=== PATIENT | male | born 1985 | race African-American/Black ===

== ENCOUNTER 2018-11-24 15:48 | Inpatient (IN) | payer SELFPAY ==
[~2018-11-24] VITALS: Ht 182.9 cm; Wt 80.0 kg
[2018-11-24 15:53] VITALS: Ht 182.9 cm; Wt 80.0 kg
[2018-11-24] MEDS ORDERED: SODIUM CHLORIDE 0.9% 1L BAG IV* STA (16:11)
[2018-11-24] MEDS ORDERED: CEFEPIME 2GM/50 ML (PMX) 50 ML IVPB STA (16:11)
[2018-11-24] MEDS ORDERED: ACETAMINOPHEN 325 MG TAB PO STA (16:14)
--- NOTE | 2018-11-24 16:14 | ERD ---
ER Documentation Chief Complaint Chief Complaint FEVER TODAY , CHILLS HPI 33-year-old male with no significant prior medical history who is visiting from [facility], arrived 6 days ago presents to the ED complaining of 2-day history of worsening generalized weakness with fevers and shaking chills. Denies chest pain, palpitations, shortness of breath, cough or hemoptysis. No abdominal pain, nausea, vomiting, diarrhea or constipation. No dysuria, polyuria, hematuria or flank pain. No URI symptoms, rhinorrhea, nasal congestion or odynophagia. No scrotal swelling, pain or penile discharge. No skin rash. Mild frontal headache but no neck or back pain. No ill contacts. ROS All systems reviewed and are negative except as per history of present illness. Medications Home Meds Active Scripts Amoxicillin/Potassium Clav (Amox-Clav 875-125 mg Tablet) 875-125 mg Tab, 875 MG PO BID for 5 Days, #10 TAB Prov:NAHOMI IRVIN MD 11/26/18 Allergies Allergies: Coded Allergies: No Known Allergy (Unverified , 11/24/18) PMhx/Soc History of Surgery: No Anesthesia Reaction: No Hx Neurological Disorder: No Hx Respiratory Disorders: No Hx Cardiac Disorders: No Hx Psychiatric Problems: No Hx Miscellaneous Medical Probl: No Hx Alcohol Use: No Hx Substance Use: No Hx Tobacco Use: No FmHx No stroke or cancer. Physical Exam Vitals Temperature: 101.7. Pulse: 98. Respirations: 18. Blood pressure: 139/88. O2 saturation 99%. Physical Exam Const: Moderate distress, Rigors. Head: Atraumatic Eyes: Pupils equal reactive to light, extraocular movements are intact. Normal Conjunctiva. Anicteric. ENT: Normal External Ears, Nose and Mouth. Pharynx is clear without erythema or exudate. No tenderness to percussion of the sinuses. Neck: Full range of motion. No meningismus. No lymphadenopathy or masses. Resp: Breath sounds are equal and clear to auscultation bilaterally Cardio: Regular rate and rhythm, no murmurs Abd: Soft, non tender, non distended. No rebound or guarding. No masses or abnormal pulsations. Negative Maldonado sign or McBurney's point tenderness. Normal bowel sounds Skin: No petechiae or rashes Back: No midline tenderness to palpation or percussion. No CVA tenderness. Ext: No cyanosis, or edema. No joint swelling or tenderness. Neur: Awake and alert. Cranial nerves II through XII are grossly intact. Motor and sensory equal bilaterally. No focal deficit observed. Psych: Appropriate mood and Affect Result Diagram: 11/26/18 0554 11/26/18 0554 Results 24 hrs Laboratory Tests Test 11/24/18 16:19 11/24/18 16:20 11/24/18 16:22 11/24/18 17:02 Hepatitis B REACTIVE Surface Antigen Hepatitis B Core REACTIVE Total Antibody Hepatitis B Core IgM Ab Confirm Hepatitis C NEGATIVE Antibody White Blood Count 5.2 10^3/ul Red Blood Count 6.30 10^6/ul Hemoglobin 14.5 g/dl Hematocrit 46.5 % Mean Corpuscular 73.8 fl Volume Mean Corpuscular 23.0 pg Hemoglobin Mean Corpuscular 31.2 g/dl Hemoglobin Concen t Red Cell 14.6 % Distribution Width Platelet Count 138 10^3/UL Mean Platelet 10.4 fl Volume Immature 0.200 % Granulocytes % Neutrophils % 75.7 % Lymphocytes % 16.7 % Monocytes % 6.6 % Eosinophils % 0.4 % Basophils % 0.4 % Nucleated Red 0.0 /100WBC Blood Cells % Immature 0.010 10^3/ul Granulocytes # Neutrophils # 3.9 10^3/ul Lymphocytes # 0.9 10^3/ul Monocytes # 0.3 10^3/ul Eosinophils # 0.0 10^3/ul Basophils # 0.0 10^3/ul Nucleated Red 0.0 10^3/ul Blood Cells # Prothrombin Time 13.4 Sec Prothrombin Time 1.0 Ratio INR International 1.01 Normalized Ratio Activated 29.8 Sec Partial Thrombopl ast Time Sodium Level 143 mmol/L Potassium Level 3.9 mmol/L Chloride Level 102 mmol/L Carbon Dioxide 30 mmol/L Level Anion Gap 11 Blood Urea 9 mg/dl Nitrogen Creatinine 1.01 mg/dl Est Glomerular > 60 mL/min Filtrat Rate mL/min Glucose Level 94 mg/dl POC Venous 1.3 mmol/L Lactate Calcium Level 9.3 mg/dl Total Bilirubin 1.9 mg/dl Direct Bilirubin 0.00 mg/dl Indirect 1.9 mg/dl Bilirubin Aspartate Amino 83 IU/L Transf (AST/SGOT) Alanine 128 IU/L Aminotransferase (ALT/SGPT) Alkaline 94 IU/L Phosphatase Troponin I 0.015 ng/ml Total Protein 7.9 g/dl Albumin 4.2 g/dl Globulin 3.70 g/dl Albumin/Globulin 1.13 Ratio Urine Color YELLOW Urine Clarity CLEAR Urine pH 8.0 Urine Specific 1.014 [place] Urine Ketones NEGATIVE mg/dL Urine Nitrite NEGATIVE mg/dL Urine Bilirubin NEGATIVE mg/dL Urine 2+ mg/dL Urobilinogen Urine Leukocyte NEGATIVE Leslie/ul Esterase Urine Microscopic 3 /HPF RBC Urine Microscopic 0 /HPF WBC Urine Hemoglobin 1+ mg/dL Urine Glucose NEGATIVE mg/dL Urine Total NEGATIVE mg/dl Protein Urine Opiates Negative Screen Urine Negative Barbiturates Urine Negative Amphetamines Screen Urine Negative Benzodiazepines Screen Urine Cocaine Negative Screen Urine Negative Cannabinoids C-Reactive 3.4 mg/dl Protein Test 11/24/18 17:26 11/24/18 18:31 Hepatitis A IgM REACTIVE Antibody Lactic Acid Level 1.6 mmol/L Current Medications Medications Dose Sig/Eddie Start Time Status Last (Trade) Ordered Route PRN Stop Time Admin Dose Reason Admin Sodium 2,400 ml BOLUS OVER 2 11/24/18 DC 11/24/18 Chloride HOURS STAT 16:11 16:22 (NS) IV* 11/24/18 16:14 Cefepime HCl 50 ml @ ONCE STAT 11/24/18 DC 11/24/18 100 mls/hr IVPB 16:11 16:24 11/24/18 16:40 Vancomycin 250 ml @ ONCE ONCE 11/24/18 DC 11/24/18 HCl 125 mls/hr IVPB 16:30 16:44 11/24/18 18:29 650 mg ONCE STAT 11/24/18 DC 11/24/18 Acetaminophen PO 16:14 16:24 (Tylenol 11/24/18 16:16 Tab) Ketorolac 15 mg ONCE STAT 11/24/18 DC 11/24/18 Tromethamine IV 18:34 18:41 (Toradol) 11/24/18 18:35 Procedures/MDM DOCUMENTS REVIEWED: ED nurse, no prior records. EKG: Time: 16:28. Sinus tachycardia. Ventricular rate 107. Normal UT and QRS. No acute ST segment elevation or depression. No ectopy. My Interpretation IMAGING: Chest AP portable. Cardiac silhouette is normal. The costophrenic angles are clear. No effusions or infiltrates. No abnormalities of the bony thorax. My interpretation. PROCEDURE: US right upper quadrant CLINICAL INDICATION: Hyperbilirubinemia and transaminitis TECHNIQUE: Multiple real-time images were acquired of the patient's right upper abdomen utilizing a high resolution transducer. COMPARISON: None available FINDINGS: Liver: Normal in size, contour and echogenicity. Normal directional blood flow is seen within the patent main portal vein. The maximum dimension estimated at 14.7 cm . Gallbladder: Partially contracted but unremarkable for gallstones or sludge. No sonographic Maldonado's sign is reported. Common bile duct: Normal; 2.8 mm. There is no evidence for choledocholithiasis. Right Kidney: Normal; maximum length measured at approximately 11.3 cm. Pancreas: Visualized portions are normal. The tail is partially obscured by bowel gas. RPTAT:HJJR IMPRESSION: Slightly contracted gallbladder, otherwise unremarkable right upper quadrant ultrasound without findings to explain the patient's provided history. Physician Darrion Date Time Electronically viewed and signed by Physician Darrion on 11/24/2018 18:34 JR/ REEXAMINATION/REEVALUATION: Time: 17:10. Better. No chills. Denies headache or neck pain. Time: 18:35. Temperature up to 103.2 F. Treated with ketorolac 50 mg IV. Benefits including diagnosis of meningitis and encephalitis as well as risks including bleeding, infection, CSF leak and post lumbar puncture headache were explained and understood by the patient with the family at the bedside. At this time is refusing lumbar puncture as he is worried about the complications. OBSERVATION NOTE: At 16:15 the patient was entered into observation status to establish the need for admission. During this time the patient was treated for fever of unknown origin. Additionally, extensive evaluation including, CBC, chemistry, urinalysis, EKG, troponin, chest x-ray, liver function test and ultrasound of the right upper quadrant were preformed with results interpreted as above. Vitals signs were monitored and multiple, frequent reexaminations were performed. At 19:15 the patient was reexamined. Continues to be febrile. Refuses lumbar puncture. Based on these findings the patient was discharged from observation as it was determined that the patient met criteria for admission. TOTAL OBSERVATION TIME: 3 Hours. MEDICAL DECISION MAKIN-year-old male with no significant prior medical history who is visiting from [facility], arrived 6 days ago presents to the ED complaining of fevers and chills. CBC reveals mild thrombocytopenia but no leukocytosis or anemia. Chemistry unremarkable for renal insufficiency or electrolyte abnormalities. Liver function test significant for mild hyperbilirubinemia and transaminitis. Hepatitis B surface antigen is positive. Chest x-ray negative for infiltrate or pneumonia. Thick smear for malaria is pending. Patient recently returned from [place] [employer] to evaluate for malaria is pending. E bolus is unlikely. Dengue and chikungunya considered but no joint pains or rash. Patient refused lumbar puncture to evaluate for meningitis or encephalitis. I considered CT scan of the abdomen pelvis to evaluate for occult intra-abdominal process but abdominal exam is completely benign without tenderness, rebound, guarding or signs of peritonitis and advanced imaging at this time is not indicated. Criteria for systemic inflammatory response syndrome include fever and tachycardia. Within 60 minutes of arrival, Normal saline 30 cc/kg fluid bolus was given and broad-spectrum antibiotics after cultures administered although no specific, acute infectious source was identified. No hhypotension and POC lactate not consistent with severe sepsis or septic shock. Patient's infectious symptoms have not stabilized and the patient is at risk of rapid decompensation. The patient will be admitted for infectious disease consultation, careful hydration, antibiotic therapy, and infectious source control. PATIENT CARE TRANSITIONED: Time: 19:15, Dr. Irvin. Counseled patient and family regarding diagnosis, diagnostic results and plan for admission. Critical Care Time: 35 minutes Treatments/Evaluations: Close monitoring and treatment of unstable vital signs, cardiorespiratory, and neurologic status, while maintaining tight balance of fluid, respiratory, and cardiac interventions. This includes the administration of emergency fluid management while maintaining close respiratory support as well as the provision of immediate and broad-spectrum antibiotic therapy, while performing a simultaneous assessment for possible sources in order to direct targeted therapy. This time includes discussing the case with the patient and the patient's family. This time also includes the consideration for invasive and chemical support to prevent cardiopulmonary collapse. This time does not include all procedures stated elsewhere in this record. This time also includes reviewing old records, labs and radiological studies. This time includes examining and re-examining the patient. Additionally, this time also includes arranging care with admitting and consulting physicians. Departure Diagnosis: Primary Impression: Fever of unknown origin Additional Impressions: SIRS (systemic inflammatory response syndrome) Hepatitis B Viral hepatitis chronicity: unspecified Hepatic coma status: without hepatic coma Hepatitis delta agent presence: without delta-agent Qualified Codes: B19.10 - Unspecified viral hepatitis B without hepatic coma Condition: Serious SHANTAL WARNER MD Nov 24, 2018 16:14
[2018-11-24] MEDS ORDERED: VANCOMYCIN 1 GM (PMX) 250 ML IVPB ONE (16:30)
[2018-11-24] MEDS ORDERED: KETOROLAC 15 MG INJ IV STA (18:34)
[2018-11-24] MEDS ORDERED: ACETAMINOPHEN 325 MG TAB PO PRN (19:30)
[2018-11-24] MEDS ORDERED: ONDANSETRON 4 MG INJ IV PRN ×2 (19:30→20:00)
[2018-11-24] MEDS ORDERED: BISACODYL (EC) 5 MG TAB PO PRN (20:00)
[2018-11-24] MEDS ORDERED: DOCUSATE SODIUM 100 MG CAP PO PRN (20:00)
[2018-11-24] MEDS ORDERED: IBUPROFEN 600 MG TAB PO PRN (20:00)
[2018-11-24] MEDS ORDERED: NACL 0.9% 3 ML SYG IV SCH (20:00)
[2018-11-24] MEDS ORDERED: HYDROCODONE/APAP (5/325) TAB PO PRN (20:00)
[2018-11-24] MEDS ORDERED: SOD CHLORIDE 0.9% 500 ML IV ONE (20:30)
[2018-11-24] MEDS ORDERED: VANCOMYCIN IV PER PHARMACY XX SCH (20:30)
[2018-11-24] MEDS ORDERED: LEVALBUTEROL (NEB) 1.25 MG/0.5 ML AMP HHN PRN (20:30)
[2018-11-24 21:40] VITALS: BP 102/59; RESP 18
[2018-11-24] MEDS: SOD CHLORIDE 0.9% 1,000 ML IV SCH (23:01)
[2018-11-24] MEDS: VANCOMYCIN 750 MG (PMX) 250 ML IVPB SCH (23:01)
[2018-11-24] MEDS: ACETAMINOPHEN 325 MG TAB PO PRN (23:03)
--- NOTE | 2018-11-24 23:16 | HP ---
Date/Time of Note Date/Time of Note DATE: 11/24/18 TIME: 23:15 Assessment/Plan VTE Prophylaxis SCD applied (from Nsg): Yes Pharmacological prophylaxis: NA/contraindicated Pharm contraindication: low risk/ambulating Lines/Catheters IV Catheter Type (from Nrsg): Peripheral IV Assessment/Plan Hospital Course This is a 33-year-old male being admitted to the [facility] floor for: #1 Sirs syndrome: Patient presented with fevers and tachycardia. He recently traveled from [facility]. He does have transaminitis or hyperbilirubinemia. His CBC panel at the current time does not appear to be consistent with hemolysis. Nonetheless we will check for malaria which is already been ordered. We will al so check HIV, hepatitis panel, West Nile virus, HSV. He refused a LP in the emergency department however he does not report any meningeal signs at the current time. We will put the patient on broad-spectrum antibiotics of vancomycin and cefepime. With the patient on isolation precautions. We will check ESR, CRP will consult infectious disease Drvirgil. #2 thrombocytopenia: No signs of bleeding. Right upper quadrant does not show any acute liver abnormality's. He does have transaminitis and hyperbilirubinemia. Will check hepatitis panel. We will need to monitor platelets closely. #3 transaminitis with hyperbilirubinemia: In the setting of fever, hepatitis as have to be in the differential. Will check hepatitis panel. Right upper quadrant ultrasound does not show any acute ab normalities. Patient does have thrombocytopenia. Will monitor closely. GI consultation. #4 Microcytosis: We will check iron panel, no signs of bleeding. #5 DVT GI prophylaxis: SCDs, no GI prophylaxis indicated Further treatment strategy will be implemented as per the clinical course. Result Diagram: 11/24/18 1620 11/24/18 1620 Results 24hrs Laboratory Tests Test 11/24/18 16:19 11/24/18 16:20 11/24/18 16:22 11/24/18 17:02 Hepatitis B Surface POSITIVE H Antigen Hepatitis B Core REACTIVE H Total Antibody Hepatitis C Antibody NEGATIVE White Blood Count 5.2 Red Blood Count 6.30 H Hemoglobin 14.5 Hematocrit 46.5 Mean Corpuscular 73.8 L Volume Mean Corpuscular 23.0 L Hemoglobin Mean Corpuscular 31.2 L Hemoglobin Concent Red Cell 14.6 H Distribution Width Platelet Count 138 L Mean Platelet Volume 10.4 Immature 0.200 Granulocytes % Neutrophils % 75.7 Lymphocytes % 16.7 Monocytes % 6.6 Eosinophils % 0.4 Basophils % 0.4 Nucleated Red Blood 0.0 Cells % Immature 0.010 Granulocytes # Neutrophils # 3.9 Lymphocytes # 0.9 Monocytes # 0.3 Eosinophils # 0.0 Basophils # 0.0 Nucleated Red Blood 0.0 Cells # Prothrombin Time 13.4 Prothrombin Time 1.0 Ratio INR International 1.01 Normalized Ratio Activated 29.8 Partial Thromboplast Time Sodium Level 143 Potassium Level 3.9 Chloride Level 102 Carbon Dioxide Level 30 Anion Gap 11 Blood Urea Nitrogen 9 Creatinine 1.01 Est Glomerular > 60 Filtrat Rate mL/min Glucose Level 94 POC Venous Lactate 1.3 Calcium Level 9.3 Total Bilirubin 1.9 H Direct Bilirubin 0.00 Indirect Bilirubin 1.9 H Aspartate Amino 83 H Transf (AST/SGOT) Alanine 128 H Aminotransferase (AL T/SGPT) Alkaline Phosphatase 94 Troponin I 0.015 Total Protein 7.9 Albumin 4.2 Globulin 3.70 H Albumin/Globulin 1.13 Ratio Urine Color YELLOW Urine Clarity CLEAR Urine pH 8.0 Urine Specific 1.014 [place] Urine Ketones NEGATIVE Urine Nitrite NEGATIVE Urine Bilirubin NEGATIVE Urine Urobilinogen 2+ H Urine Leukocyte NEGATIVE Esterase Urine Microscopic 3 RBC Urine Microscopic 0 WBC Urine Hemoglobin 1+ H Urine Glucose NEGATIVE Urine Total Protein NEGATIVE Urine Opiates Screen Negative Urine Barbiturates Negative Urine Amphetamines Negative Screen Urine Negative Benzodiazepines Screen Urine Cocaine Screen Negative Urine Cannabinoids Negative C-Reactive Protein 3.4 H Test 11/24/18 18:31 11/24/18 21:12 11/24/18 21:13 Lactic Acid Level 1.6 1.2 Erythrocyte 6 Sedimentation Rate Absolute 0.055 Reticulocyte Count Percent Reticulocyte 1.0 Count HPI/ROS Admit Date/Time Admit Date/Time Nov 24, 2018 at 19:29 Hx of Present Illness Chief complaint: Fevers, chills This is a 33-year-old male who presents with no past medical history to the emergency department with fevers and chills. Patient reports that he came from [facility] approximately 6 days ago. He was doing fine for the first few days and then approximately 2 to 3 days ago started expressing fevers and chills. He did have a headache. He denies any neck pain or nausea or vomiting. Denies any cough or chest pain or shortness of breath. Denies any burning when he urinates. He reports that he came to the [place] on official visit for work. He denies any history of blood transfusions. He is and is only sexually active with his . He denies any IV drug use. He does state that he received hepatitis vaccination in 2016. He denies any previous history of hepatitis. He does report though that he has gone through similar episodes right now with fevers and chills and they resolve in a few days. Allergies: NKDA Medications: None ROS Const: As per HPI Eyes : No pain discharge or redness or change in visual acuity ENT: No pain, sore throat, congestion, congestion, dysphagia or discharge Respiratory: No shortness of breath, cough, sputum, wheezing, or pleuritic pain Cardiovascular: No chest pain, palpitation, PND, or edema GI : no change in appetite, abdominal pain, nausea, vomiting, diarrhea, constipation, or change in the color his stool Genitourinary: No dysuria, hematuria, flank pain , discharge or CVA tenderness Musculoskeletal: No joint pain, back pain, neck pain, restricted range of motion in neck or joints Skin: No rash, bruising or hives Neuro: As per HPI Endocrine: No polyuria, polydipsia, temperature intolerance Psych: No hallucination, depression, anxiety or suicidal ideation PMH/Family/Social Past Medical History Medical History: no pertinent history Medications Current Medications IV Flush (NS 3 ml) 3 ml PER PROTOCOL IV ; Start 11/24/18 at 20:00 Ondansetron HCl (Zofran Inj) 4 mg Q6H PRN IV NAUSEA/VOMITING; Start 11/24/18 at 20:00 Acetaminophen (Tylenol Tab) 650 mg Q6H PRN PO .PAIN 1-3 OR TEMP Last administered on 11/24/18at 23:03; Admin Dose 650 MG; Start 11/24/18 at 20:00 Ibuprofen (Motrin) 600 mg Q6H PRN PO .PAIN 1-3; Start 11/24/18 at 20:00 Acetaminophen/ Hydrocodone Bitart (Watson (5/325)) 1 tab Q6H PRN PO .MOD PAIN 4- 6; Start 11/24/18 at 20:00 Docusate Sodium (Colace) 100 mg Q12H PRN PO .CONSTIPATION; Start 11/24/18 at 20:00 Bisacodyl (Dulcolax) 5 mg DAILY PRN PO .CONSTIPATION; Start 11/24/18 at 20:00 Vancomycin HCl (Vanco Iv Per Pharmacy) VANCOMYCIN PER PHARMACY PER PROTOCOL XX ; Start 11/24/18 at 20:30 Piperacillin Sod/ Tazobactam Sod 100 ml @ 200 mls/hr Q6 IVPB ; Start 11/25/18 at 00:00 Sodium Chloride 1,000 ml @ 80 mls/hr [id number] IV Last administered on 11/24/18at 23:01; Admin Dose 80 MLS/HR; Start 11/24/18 at 22:30; Stop 11/25/18 at 22:29 Levalbuterol (Xopenex Neb) 1.25 mg Q4H RESP THERAPY PRN HHN SHORTNESS OF B REATH; Start 11/24/18 at 20:30 Vancomycin/Sodium Chloride 250 ml @ 125 mls/hr Q8H IVPB Last administered on 11/24/18at 23:01; Admin Dose 125 MLS/HR; Start 11/24/18 at 23:00 Miscellaneous Information (*Rx Drug Level Order Reminder*) VANCOMYCIN TROUGH LE... 2200 ONCE XX ; Start 11/25/18 at 22:00; Stop 11/25/18 at 22:01 Coded Allergies: No Known Allergy (Unverified , 11/24/18) Past Surgical History Past Surgical Hx: no surgical history Family History Significant Family History: no pertinent family hx Social History Alcohol Use: none Smoking Status: Never smoker Drug Use: none Exam/Review of Systems Vital Signs Vitals Vital Signs Date Temp Pulse Resp B/P (MAP) Pulse Ox O2 O2 Flow FiO2 Time Delivery Rate 11/24/18 99.1 83 20 100/65 98 Room Air 21:22 (77) Exam Exam General: Patient currently lying in bed he does not appear to be in any acute distress HEENT: Atraumatic, normocephalic. The pupils are equal, round and reactive. Extraocular motor are intact Neck: Supple with full range of motion. No rigidity or meningismus Chest: Nontender Lungs: Clear to auscultation bilaterally no crackles rales or wheezing Heart: Normal S1-S2, Regular rhythm and rate. No murmur, S3, or S4 Abdomen: Soft , nontender, nondistended , bowel sounds are present. No guarding no rebound tenderness , no overt organomegaly appreciated on exam. Nontender right upper quadrant nontender left upper quadrant. No costovertebral temporal angle mass Extremities: Normal to inspection, no edema no cyanosis Neurologic: Normal mental status, speech normal, cranial nerves II through XII are intact, motor and sensory are intact, no focal weakness Additional Comments PROCEDURE: US right upper quadrant CLINICAL INDICATION: Hyperbilirubinemia and transaminitis TECHNIQUE: Multiple real-time images were acquired of the patient's right upper abdomen utilizing a high resolution transducer. COMPARISON: None available FINDINGS: Liver: Normal in size, contour and echogenicity. Normal directional blood flow is seen within the patent main portal vein. The maximum dimension estimated at 14.7 cm . Gallbladder: Partially contracted but unremarkable for gallstones or sludge. No sonographic Maldonado's sign is reported. Common bile duct: Normal; 2.8 mm. There is no evidence for choledocholithiasis. Right Kidney: Normal; maximum length measured at approximately 11.3 cm. Pancreas: Visualized portions are normal. The tail is partially obscured by bowel gas. RPTAT:HJJR IMPRESSION: Slightly contracted gallbladder, otherwise unremarkable right upper quadrant ultrasound without findings to explain the patient's provided history. Physician Darrion Date Time Electronically viewed and signed by Physician Darrion on 11/24/2018 18:34 JR/ CC: SHANTAL WARNER MD [id number] PROCEDURE: XR Chest. CLINICAL INDICATION: Chest pain. Possible sepsis TECHNIQUE: Portable AP semi erect view of the chest was obtained. COMPARISON: None. FINDINGS: The cardiomediastinal silhouette is within normal limits. The lungs are clear. There is no evidence for pleural effusion, pneumothorax or pulmonary vascular congestion. The osseous structures are intact with no evidence for acute abnormality. RPTAT:HJJR IMPRESSION: No evidence for acute intrathoracic pathology. Sam Villegas, Physician Date Time Electronically viewed and signed by Sam Villegas, Physician on 11/24/2018 17:28 JR/ CC: SHANTAL WARNER MD [id number] BOBY MCCAULEY Nov 24, 2018 23:16
[2018-11-25] MEDS ORDERED: PIPER-TAZO 3.375 GM IV (PMX) 100 ML IVPB SCH
[2018-11-25] MEDS: CEFEPIME 2GM/50 ML (PMX) 50 ML IVPB SCH ×4 (01:18→22:00)
[2018-11-25 01:36] VITALS: BP 102/65; PULSE 75; RESP 18
[2018-11-25] MEDS: VANCOMYCIN 750 MG (PMX) 250 ML IVPB SCH (07:05)
[2018-11-25 08:48] VITALS: BP 119/66; PULSE 95; RESP 20
--- NOTE | 2018-11-25 09:05 | CONS ---
Assessment/Plan Assessment/Plan Hospital Course (Demo Recall) 1)probable viral syndrome doubt he has meningitis no evidence to suggest ebola at this time and it is only present in the [place] [facility], not in [facility] malaria is present all year round in [facility], including [facility], to repeat thick smear for malaria, pt does not recall any mosquito bites dengue is possible but he does not exhibit the typical symptoms for it (severe myalgias, retro-orbital pain, petecchiae) and it is too early for Ab to appear for it, continue to monitor for symptoms continue with vanco/cefepime at present but if fever is improved and procalcitonin and cx are all neg will likely d/c antibiotics soon check procalcitonin influenza rapid screen was neg, to check viral respiratory panel pt has no diarrhea so unlikely he has a GI cause for his fever CXR was neg and pt has no respiratory symptoms typhoid fever is possible but no diarrhea and blood cx are NGTD no hx of recent dental work and no IVDA use, so doubt endocarditis, to follow blood cx 2) increase in LFT's although he received the hep B vaccine in [facility] last year he has no antibodies to Hep B surface and his surface antigen is positive in light of how low his increase in LFT's are he likely has chronic hepatitis and will need followup with repeat testing in a few months to see if he can clear it on his own also his increase in LFT's could be also related to a viral syndrome RUQ u/s was unremarkable 3)leukopenia and thrombocytopenia this is c/w an viral process work-up as above doubt he has sepsis to explain it Consultation Date/Type/Reason Admit Date/Time Nov 24, 2018 at 19:29 Date of Consultation: Nov 25, 2018 Type of Consult ID Date/Time of Note DATE: 11/25/18 TIME: 08:45 Hx of Present Illness pt has traveled back and forth from [place], [place] and [facility] He was here in [place] about the month ago and then went back to [facility] on 10/29/18 and returned on 11/17/18 He did not start to feel sick until 2 days ago when he developed F, chills (rigors). He also had a BAUTISTA but mostly when he had the fevers. No change in vision, cough, sore throat, coryza. He states he sat next to someone on the plane who appeared sick. No rashes, muscle aches, joint pains no N, V, D, rashes no dysuria he is feeling better today c/w yesterday and the BAUTISTA is frontal and mild his last pain med was 12 hours ago pt states he got Hep B vaccine about a year ago and had been tested prior to the vaccine and did not have Hep B Pt is and no hx of IVDA Past Medical History Medical History: no pertinent history Home Meds No Active Prescriptions or Reported Meds Medications Current Medications IV Flush (NS 3 ml) 3 ml PER PROTOCOL IV ; Start 11/24/18 at 20:00 Ondansetron HCl (Zofran Inj) 4 mg Q6H PRN IV NAUSEA/VOMITING; Start 11/24/18 at 20:00 Acetaminophen (Tylenol Tab) 650 mg Q6H PRN PO .PAIN 1-3 OR TEMP Last administered on 11/24/18at 23:03; Admin Dose 650 MG; Start 11/24/18 at 20:00 Ibuprofen (Motrin) 600 mg Q6H PRN PO .PAIN 1-3; Start 11/24/18 at 20:00 Acetaminophen/ Hydrocodone Bitart ([place] (5/325)) 1 tab Q6H PRN PO .MOD PAIN 4- 6; Start 11/24/18 at 20:00 Docusate Sodium (Colace) 100 mg Q12H PRN PO .CONSTIPATION; Start 11/24/18 at 20:00 Bisacodyl (Dulcolax) 5 mg DAILY PRN PO .CONSTIPATION; Start 11/24/18 at 20:00 Vancomycin HCl (Vanco Iv Per Pharmacy) VANCOMYCIN PER PHARMACY PER PROTOCOL XX ; Start 11/24/18 at 20:30 Sodium Chloride 1,000 ml @ 80 mls/hr [id number] IV Last administered on 11/24/18at 23:01; Admin Dose 80 MLS/HR; Start 11/24/18 at 22:30; Stop 11/25/18 at 22:29 Levalbuterol (Xopenex Neb) 1.25 mg Q4H RESP THERAPY PRN HHN SHORTNESS OF BREATH; Start 11/24/18 at 20:30 Vancomycin/Sodium Chloride 250 ml @ 125 mls/hr Q8H IVPB Last administered on 11/25/18at 07:05; Admin Dose 125 MLS/HR; Start 11/24/18 at 23:00 Miscellaneous Information (*Rx Drug Level Order Reminder*) VANCOMYCIN TROUGH LE... 2200 ONCE XX ; Start 11/25/18 at 22:00; Stop 11/25/18 at 22:01 Cefepime HCl 50 ml @ 100 mls/hr Q8 IVPB Last administered on 11/25/18at 06:25; Admin Dose 100 MLS/HR; Start 11/25/18 at 00:00 Allergies: Coded Allergies: No Known Allergy (Unverified , 11/24/18) Past Surgical History Past Surgical Hx: no surgical history Social History Alcohol Use: none Smoking Status: Never smoker Drug Use: none Exam/Review of Systems Exam Vitals Vital Signs Date Temp Pulse Resp B/P (MAP) Pulse Ox O2 O2 Flow FiO2 Time Delivery Rate 11/25/18 98.4 75 18 102/65 98 01:36 (77) 11/24/18 Room Air 21:40 Intake and Output 11/24/18 11/24/18 11/25/18 1515:00 23:00 07:00 IntakeIntake Total 50 ml 580 ml OutputOutput Total 1200 ml BalanceBalance -1150 ml 580 ml Constitutional: alert, oriented Eyes: nl sclera ENMT: mucosa pink and moist Neck: supple Respiratory: clear to auscultation Cardiovascular: regular rate and rhythm Gastrointestinal: soft, non-tender, other (no masses felt) Musculoskeletal: nl extremities to inspection Neurological: other (moves all extremities) Results Result Diagram: 11/25/18 0459 11/25/18 0459 Results 24hrs Laboratory Tests Test 11/24/18 16:19 11/24/18 16:20 11/24/18 16:22 11/24/18 17:02 Hepatitis B Surface POSITIVE H Antigen Hepatitis B Core REACTIVE H Total Antibody Hepatitis C Antibody NEGATIVE White Blood Count 5.2 Red Blood Count 6.30 H Hemoglobin 14.5 Hematocrit 46.5 Mean Corpuscular 73.8 L Volume Mean Corpuscular 23.0 L Hemoglobin Mean Corpuscular 31.2 L Hemoglobin Concent Red Cell 14.6 H Distribution Width Platelet Count 138 L Mean Platelet Volume 10.4 Immature 0.200 Granulocytes % Neutrophils % 75.7 Lymphocytes % 16.7 Monocytes % 6.6 Eosinophils % 0.4 Basophils % 0.4 Nucleated Red Blood 0.0 Cells % Immature 0.010 Granulocytes # Neutrophils # 3.9 Lymphocytes # 0.9 Monocytes # 0.3 Eosinophils # 0.0 Basophils # 0.0 Nucleated Red Blood 0.0 Cells # Prothrombin Time 13.4 Prothrombin Time 1.0 Ratio INR International 1.01 Normalized Ratio Activated 29.8 Partial Thromboplast Time Sodium Level 143 Potassium Level 3.9 Chloride Level 102 Carbon Dioxide Level 30 Anion Gap 11 Blood Urea Nitrogen 9 Creatinine 1.01 Est Glomerular > 60 Filtrat Rate mL/min Glucose Level 94 POC Venous Lactate 1.3 Calcium Level 9.3 Total Bilirubin 1.9 H Direct Bilirubin 0.00 Indirect Bilirubin 1.9 H Aspartate Amino 83 H Transf (AST/SGOT) Alanine 128 H Aminotransferase (AL T/SGPT) Alkaline Phosphatase 94 Troponin I 0.015 Total Protein 7.9 Albumin 4.2 Globulin 3.70 H Albumin/Globulin 1.13 Ratio Urine Color YELLOW Urine Clarity CLEAR Urine pH 8.0 Urine Specific 1.014 [place] Urine Ketones NEGATIVE Urine Nitrite NEGATIVE Urine Bilirubin NEGATIVE Urine Urobilinogen 2+ H Urine Leukocyte NEGATIVE Esterase Urine Microscopic 3 RBC Urine Microscopic 0 WBC Urine Hemoglobin 1+ H Urine Glucose NEGATIVE Urine Total Protein NEGATIVE Urine Opiates Screen Negative Urine Barbiturates Negative Urine Amphetamines Negative Screen Urine Negative Benzodiazepines Screen Urine Cocaine Screen Negative Urine Cannabinoids Negative C-Reactive Protein 3.4 H Test 11/24/18 18:31 11/24/18 21:12 11/24/18 21:13 11/25/18 04:59 Lactic Acid Level 1.6 1.2 Erythrocyte 6 Sedimentation Rate Absolute 0.055 Reticulocyte Count Percent Reticulocyte 1.0 Count White Blood Count 2.6 #L Red Blood Count 5.49 Hemoglobin 12.7 L Hematocrit 41.2 L Mean Corpuscular 75.0 L Volume Mean Corpuscular 23.1 L Hemoglobin Mean Corpuscular 30.8 L Hemoglobin Concent Red Cell 14.4 Distribution Width Platelet Count 111 L Mean Platelet Volume 11.5 H Immature 0.400 Granulocytes % Neutrophils % Lymphocytes % Monocytes % Eosinophils % Basophils % Nucleated Red Blood 0.0 Cells % Immature 0.010 Granulocytes # Neutrophils # Lymphocytes # Monocytes # Eosinophils # Basophils # Nucleated Red Blood Cells # Sodium Level 146 H Potassium Level 3.9 Chloride Level 111 H Carbon Dioxide Level 25 Anion Gap 10 Blood Urea Nitrogen 7 Creatinine 0.82 Est Glomerular > 60 Filtrat Rate mL/min Glucose Level 107 Hemoglobin A1c 5.4 Calcium Level 8.6 Magnesium Level 1.7 Iron Level 47 Total Iron Binding 273 Capacity Percent Iron 17 L Saturation Ferritin 126.0 Total Bilirubin 2.2 H Direct Bilirubin 0.00 Indirect Bilirubin 2.2 H Aspartate Amino 56 H Transf (AST/SGOT) Alanine 104 H Aminotransferase (AL T/SGPT) Alkaline Phosphatase 81 Lactate 535 Dehydrogenase C-Reactive Protein 4.8 H Total Protein 6.3 # Albumin 3.2 #L Globulin 3.10 Albumin/Globulin 1.03 Ratio Thyroid Stimulating 3.460 Hormone (TSH) Hepatitis B Surface POSITIVE H Antigen Hepatitis B Surface NEGATIVE Antibody Hepatitis B Core REACTIVE H Total Antibody Medications Medication Current Medications IV Flush (NS 3 ml) 3 ml PER PROTOCOL IV ; Start 11/24/18 at 20:00 Ondansetron HCl (Zofran Inj) 4 mg Q6H PRN IV NAUSEA/VOMITING; Start 11/24/18 at 20:00 Acetaminophen (Tylenol Tab) 650 mg Q6H PRN PO .PAIN 1-3 OR TEMP Last administered on 11/24/18at 23:03; Admin Dose 650 MG; Start 11/24/18 at 20:00 Ibuprofen (Motrin) 600 mg Q6H PRN PO .PAIN 1-3; Start 11/24/18 at 20:00 Acetaminophen/ Hydrocodone Bitart ([place] (5/325)) 1 tab Q6H PRN PO .MOD PAIN 4- 6; Start 11/24/18 at 20:00 Docusate Sodium (Colace) 100 mg Q12H PRN PO .CONSTIPATION; Start 11/24/18 at 20:00 Bisacodyl (Dulcolax) 5 mg DAILY PRN PO .CONSTIPATION; Start 11/24/18 at 20:00 Vancomycin HCl (Vanco Iv Per Pharmacy) VANCOMYCIN PER PHARMACY PER PROTOCOL XX ; Start 11/24/18 at 20:30 Sodium Chloride 1,000 ml @ 80 mls/hr [id number] IV Last administered on 11/24/18at 23:01; Admin Dose 80 MLS/HR; Start 11/24/18 at 22:30; Stop 11/25/18 at 22:29 Levalbuterol (Xopenex Neb) 1.25 mg Q4H RESP THERAPY PRN HHN SHORTNESS OF BREATH; Start 11/24/18 at 20:30 Vancomycin/Sodium Chloride 250 ml @ 125 mls/hr Q8H IVPB Last administered on 11/25/18at 07:05; Admin Dose 125 MLS/HR; Start 11/24/18 at 23:00 Miscellaneous Information (*Rx Drug Level Order Reminder*) VANCOMYCIN TROUGH LE... 2200 ONCE XX ; Start 11/25/18 at 22:00; Stop 11/25/18 at 22:01 Cefepime HCl 50 ml @ 100 mls/hr Q8 IVPB Last administered on 11/25/18at 06:25; Admin Dose 100 MLS/HR; Start 11/25/18 at 00:00 ROBY RICHARDSON MD Nov 25, 2018 08:57
[2018-11-25] MEDS: SOD CHLORIDE 0.9% 1,000 ML IV SCH ×2 (11:00→19:35)
[2018-11-25] MEDS: ACETAMINOPHEN 325 MG TAB PO PRN (12:20)
[2018-11-25 13:28] VITALS: BP 110/66; PULSE 96; RESP 18
[2018-11-25] MEDS: VANCOMYCIN 1 GM 250 ML IVPB SCH ×2 (15:42→23:03)
--- NOTE | 2018-11-25 15:50 | PN ---
Date/Time of Note Date/Time of Note DATE: 11/25/18 TIME: 15:49 Assessment/Plan VTE Prophylaxis Risk score (from Nsg)>0 risk: 0 SCD applied (from Nsg): Yes Pharmacological prophylaxis: heparin Lines/Catheters IV Catheter Type (from Nrsg): Peripheral IV Assessment/Plan Hospital Course 33 yo male with HBV who arrived from [facility] recently with febrile illness of unclear etiology - Continue antibiotics as per Dr Oliveros - Seems to be improving - Await infectious labs studies HBV: - No evidence of cirrhosis - I do not believe this is playing a role in acute illness - Will need to have this monitored as an outpaitne Result Diagram: 11/25/18 0459 11/25/18 0459 Results 24hrs Laboratory Tests Test 11/24/18 16:19 11/24/18 16:20 11/24/18 16:22 11/24/18 17:02 Hepatitis B Surface POSITIVE H Antigen Hepatitis B Core REACTIVE H Total Antibody Hepatitis C Antibody NEGATIVE White Blood Count 5.2 Red Blood Count 6.30 H Hemoglobin 14.5 Hematocrit 46.5 Mean Corpuscular 73.8 L Volume Mean Corpuscular 23.0 L Hemoglobin Mean Corpuscular 31.2 L Hemoglobin Concent Red Cell 14.6 H Distribution Width Platelet Count 138 L Mean Platelet Volume 10.4 Immature 0.200 Granulocytes % Neutrophils % 75.7 Lymphocytes % 16.7 Monocytes % 6.6 Eosinophils % 0.4 Basophils % 0.4 Nucleated Red Blood 0.0 Cells % Immature 0.010 Granulocytes # Neutrophils # 3.9 Lymphocytes # 0.9 Monocytes # 0.3 Eosinophils # 0.0 Basophils # 0.0 Nucleated Red Blood 0.0 Cells # Prothrombin Time 13.4 Prothrombin Time 1.0 Ratio INR International 1.01 Normalized Ratio Activated 29.8 Partial Thromboplast Time Sodium Level 143 Potassium Level 3.9 Chloride Level 102 Carbon Dioxide Level 30 Anion Gap 11 Blood Urea Nitrogen 9 Creatinine 1.01 Est Glomerular > 60 Filtrat Rate mL/min Glucose Level 94 POC Venous Lactate 1.3 Calcium Level 9.3 Total Bilirubin 1.9 H Direct Bilirubin 0.00 Indirect Bilirubin 1.9 H Aspartate Amino 83 H Transf (AST/SGOT) Alanine 128 H Aminotransferase (AL T/SGPT) Alkaline Phosphatase 94 Troponin I 0.015 Total Protein 7.9 Albumin 4.2 Globulin 3.70 H Albumin/Globulin 1.13 Ratio Urine Color YELLOW Urine Clarity CLEAR Urine pH 8.0 Urine Specific 1.014 [place] Urine Ketones NEGATIVE Urine Nitrite NEGATIVE Urine Bilirubin NEGATIVE Urine Urobilinogen 2+ H Urine Leukocyte NEGATIVE Esterase Urine Microscopic 3 RBC Urine Microscopic 0 WBC Urine Hemoglobin 1+ H Urine Glucose NEGATIVE Urine Total Protein NEGATIVE Urine Opiates Screen Negative Urine Barbiturates Negative Urine Amphetamines Negative Screen Urine Negative Benzodiazepines Screen Urine Cocaine Screen Negative Urine Cannabinoids Negative C-Reactive Protein 3.4 H Test 11/24/18 18:31 11/24/18 21:12 11/24/18 21:13 11/25/18 04:59 Lactic Acid Level 1.6 1.2 Erythrocyte 6 Sedimentation Rate Absolute 0.055 Reticulocyte Count Percent Reticulocyte 1.0 Count White Blood Count 2.6 #L Red Blood Count 5.49 Hemoglobin 12.7 L Hematocrit 41.2 L Mean Corpuscular 75.0 L Volume Mean Corpuscular 23.1 L Hemoglobin Mean Corpuscular 30.8 L Hemoglobin Concent Red Cell 14.4 Distribution Width Platelet Count 111 L Mean Platelet Volume 11.5 H Immature 0.400 Granulocytes % Neutrophils % Segmented 44 Neutrophils % (Manual) Band Neutrophils % 5 H (Manual) Lymphocytes % Lymphocytes % 34 (Manual) Reactive Lymphocytes 3 H % (Manual) Monocytes % Monocytes % (Manual) 12 H Eosinophils % Eosinophils % 1 (Manual) Basophils % Basophils % (Manual) 1 Nucleated Red Blood 0.0 Cells % Immature 0.010 Granulocytes # Neutrophils # Neutrophils # 1.1 L (Manual) Band Neutrophils # 0.1 Lymphocytes (Manual) 0.8 Lymphocytes # Reactive Lymphocytes 0.0 # Monocytes # Monocytes # (Manual) 0.3 Eosinophils # Basophils # Basophils # (Manual) 0.0 Nucleated Red Blood Cells # Platelet Estimate DECREASED Giant Platelets 5 H Polychromasia 1+ Poikilocytosis 1+ Anisocytosis 1+ Target Cells 1+ Ovalocytes 1+ Sodium Level 146 H Potassium Level 3.9 Chloride Level 111 H Carbon Dioxide Level 25 Anion Gap 10 Blood Urea Nitrogen 7 Creatinine 0.82 Est Glomerular > 60 Filtrat Rate mL/min Glucose Level 107 Hemoglobin A1c 5.4 Calcium Level 8.6 Magnesium Level 1.7 Iron Level 47 Total Iron Binding 273 Capacity Percent Iron 17 L Saturation Ferritin 126.0 Total Bilirubin 2.2 H Direct Bilirubin 0.00 Indirect Bilirubin 2.2 H Aspartate Amino 56 H Transf (AST/SGOT) Alanine 104 H Aminotransferase (AL T/SGPT) Alkaline Phosphatase 81 Lactate 535 Dehydrogenase C-Reactive Protein 4.8 H Total Protein 6.3 # Albumin 3.2 #L Globulin 3.10 Albumin/Globulin 1.03 Ratio Thyroid Stimulating 3.460 Hormone (TSH) Hepatitis B Surface POSITIVE H Antigen Hepatitis B Surface NEGATIVE Antibody Hepatitis B Core REACTIVE H Total Antibody Test 11/25/18 05:00 11/25/18 09:30 Erythrocyte 6 Sedimentation Rate Procalcitonin 1.42 H HIV (1&2) Antibody NEGATIVE Exam/Review of Systems Exam Vitals Vital Signs Date Temp Pulse Resp B/P (MAP) Pulse Ox O2 O2 Flow FiO2 Time Delivery Rate 11/25/18 99.9 96 18 110/66 96 13:28 (81) 11/24/18 Room Air 21:40 Intake and Output 11/24/18 11/24/18 11/25/18 1515:00 23:00 07:00 IntakeIntake Total 50 ml 580 ml OutputOutput Total 1200 ml BalanceBalance -1150 ml 580 ml Constitutional: alert, oriented, well developed Psych: no complaints, nl mood/affect Head: normocephalic, atraumatic Eyes: nl conjunctiva, EOMI, nl lids, nl sclera, PERRL ENMT: nl external ears & nose, nl lips & teeth, nl nasal mucosa & septum Neck: supple, non-tender Respiratory: clear to auscultation, normal air movement Cardiovascular: regular rate and rhythm, nl pulses Gastrointestinal: soft, nl liver, spleen, non-tender Musculoskeletal: nl extremities to inspection, nl gait and stance Extremities: normal pulses 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, nl mental status, nl speech, nl strength Skin: nl turgor; No rash or lesions Lymph: nl lymph nodes Results Results 24hrs Laboratory Tests Test 11/24/18 16:19 11/24/18 16:20 11/24/18 16:22 11/24/18 17:02 Hepatitis B Surface POSITIVE H Antigen Hepatitis B Core REACTIVE H Total Antibody Hepatitis C Antibody NEGATIVE White Blood Count 5.2 Red Blood Count 6.30 H Hemoglobin 14.5 Hematocrit 46.5 Mean Corpuscular 73.8 L Volume Mean Corpuscular 23.0 L Hemoglobin Mean Corpuscular 31.2 L Hemoglobin Concent Red Cell 14.6 H Distribution Width Platelet Count 138 L Mean Platelet Volume 10.4 Immature 0.200 Granulocytes % Neutrophils % 75.7 Lymphocytes % 16.7 Monocytes % 6.6 Eosinophils % 0.4 Basophils % 0.4 Nucleated Red Blood 0.0 Cells % Immature 0.010 Granulocytes # Neutrophils # 3.9 Lymphocytes # 0.9 Monocytes # 0.3 Eosinophils # 0.0 Basophils # 0.0 Nucleated Red Blood 0.0 Cells # Prothrombin Time 13.4 Prothrombin Time 1.0 Ratio INR International 1.01 Normalized Ratio Activated 29.8 Partial Thromboplast Time Sodium Level 143 Potassium Level 3.9 Chloride Level 102 Carbon Dioxide Level 30 Anion Gap 11 Blood Urea Nitrogen 9 Creatinine 1.01 Est Glomerular > 60 Filtrat Rate mL/min Glucose Level 94 POC Venous Lactate 1.3 Calcium Level 9.3 Total Bilirubin 1.9 H Direct Bilirubin 0.00 Indirect Bilirubin 1.9 H Aspartate Amino 83 H Transf (AST/SGOT) Alanine 128 H Aminotransferase (AL T/SGPT) Alkaline Phosphatase 94 Troponin I 0.015 Total Protein 7.9 Albumin 4.2 Globulin 3.70 H Albumin/Globulin 1.13 Ratio Urine Color YELLOW Urine Clarity CLEAR Urine pH 8.0 Urine Specific 1.014 [place] Urine Ketones NEGATIVE Urine Nitrite NEGATIVE Urine Bilirubin NEGATIVE Urine Urobilinogen 2+ H Urine Leukocyte NEGATIVE Esterase Urine Microscopic 3 RBC Urine Microscopic 0 WBC Urine Hemoglobin 1+ H Urine Glucose NEGATIVE Urine Total Protein NEGATIVE Urine Opiates Screen Negative Urine Barbiturates Negative Urine Amphetamines Negative Screen Urine Negative Benzodiazepines Screen Urine Cocaine Screen Negative Urine Cannabinoids Negative C-Reactive Protein 3.4 H Test 11/24/18 18:31 11/24/18 21:12 11/24/18 21:13 11/25/18 04:59 Lactic Acid Level 1.6 1.2 Erythrocyte 6 Sedimentation Rate Absolute 0.055 Reticulocyte Count Percent Reticulocyte 1.0 Count White Blood Count 2.6 #L Red Blood Count 5.49 Hemoglobin 12.7 L Hematocrit 41.2 L Mean Corpuscular 75.0 L Volume Mean Corpuscular 23.1 L Hemoglobin Mean Corpuscular 30.8 L Hemoglobin Concent Red Cell 14.4 Distribution Width Platelet Count 111 L Mean Platelet Volume 11.5 H Immature 0.400 Granulocytes % Neutrophils % Segmented 44 Neutrophils % (Manual) Band Neutrophils % 5 H (Manual) Lymphocytes % Lymphocytes % 34 (Manual) Reactive Lymphocytes 3 H % (Manual) Monocytes % Monocytes % (Manual) 12 H Eosinophils % Eosinophils % 1 (Manual) Basophils % Basophils % (Manual) 1 Nucleated Red Blood 0.0 Cells % Immature 0.010 Granulocytes # Neutrophils # Neutrophils # 1.1 L (Manual) Band Neutrophils # 0.1 Lymphocytes (Manual) 0.8 Lymphocytes # Reactive Lymphocytes 0.0 # Monocytes # Monocytes # (Manual) 0.3 Eosinophils # Basophils # Basophils # (Manual) 0.0 Nucleated Red Blood Cells # Platelet Estimate DECREASED Giant Platelets 5 H Polychromasia 1+ Poikilocytosis 1+ Anisocytosis 1+ Target Cells 1+ Ovalocytes 1+ Sodium Level 146 H Potassium Level 3.9 Chloride Level 111 H Carbon Dioxide Level 25 Anion Gap 10 Blood Urea Nitrogen 7 Creatinine 0.82 Est Glomerular > 60 Filtrat Rate mL/min Glucose Level 107 Hemoglobin A1c 5.4 Calcium Level 8.6 Magnesium Level 1.7 Iron Level 47 Total Iron Binding 273 Capacity Percent Iron 17 L Saturation Ferritin 126.0 Total Bilirubin 2.2 H Direct Bilirubin 0.00 Indirect Bilirubin 2.2 H Aspartate Amino 56 H Transf (AST/SGOT) Alanine 104 H Aminotransferase (AL T/SGPT) Alkaline Phosphatase 81 Lactate 535 Dehydrogenase C-Reactive Protein 4.8 H Total Protein 6.3 # Albumin 3.2 #L Globulin 3.10 Albumin/Globulin 1.03 Ratio Thyroid Stimulating 3.460 Hormone (TSH) Hepatitis B Surface POSITIVE H Antigen Hepatitis B Surface NEGATIVE Antibody Hepatitis B Core REACTIVE H Total Antibody Test 11/25/18 05:00 11/25/18 09:30 Erythrocyte 6 Sedimentation Rate Procalcitonin 1.42 H HIV (1&2) Antibody NEGATIVE Medications Medication Current Medications IV Flush (NS 3 ml) 3 ml PER PROTOCOL IV ; Start 11/24/18 at 20:00 Ondansetron HCl (Zofran Inj) 4 mg Q6H PRN IV NAUSEA/VOMITING; Start 11/24/18 at 20:00 Acetaminophen (Tylenol Tab) 650 mg Q6H PRN PO .PAIN 1-3 OR TEMP Last admini stered on 11/25/18at 12:20; Admin Dose 650 MG; Start 11/24/18 at 20:00 Ibuprofen (Motrin) 600 mg Q6H PRN PO .PAIN 1-3; Start 11/24/18 at 20:00 Acetaminophen/ Hydrocodone Bitart ([place] (5/325)) 1 tab Q6H PRN PO .MOD PAIN 4- 6; Start 11/24/18 at 20:00 Docusate Sodium (Colace) 100 mg Q12H PRN PO .CONSTIPATION; Start 11/24/18 at 20:00 Bisacodyl (Dulcolax) 5 mg DAILY PRN PO .CONSTIPATION; Start 11/24/18 at 20:00 Vancomycin HCl (Vanco Iv Per Pharmacy) VANCOMYCIN PER PHARMACY PER PROTOCOL XX ; Start 11/24/18 at 20:30 Sodium Chloride 1,000 ml @ 80 mls/hr [id number] IV Last administered on 11/24/18at 23:01; Admin Dose 80 MLS/HR; Start 11/24/18 at 22:30; Stop 11/25/18 at 22:29 Levalbuterol (Xopenex Neb) 1.25 mg Q4H RESP THERAPY PRN HHN SHORTNESS OF BREATH; Start 11/24/18 at 20:30 Cefepime HCl 50 ml @ 100 mls/hr Q8 IVPB Last administered on 11/25/18at 13:43; Admin Dose 100 MLS/HR; Start 11/25/18 at 00:00 Vancomycin HCl 250 ml @ 125 mls/hr Q8H IVPB Last administered on 11/25/18at 15:42; Admin Dose 125 MLS/HR; Start 11/25/18 at 15:00 Miscellaneous Information (*Rx Drug Level Order Reminder*) 1 0600 ONCE XX ; Start 11/26/18 at 06:00; Stop 11/26/18 at 06:01 NAHOMI AMEZCUA MD Nov 25, 2018 15:50
[2018-11-25 19:51] VITALS: BP 102/57; PULSE 69; RESP 17
[2018-11-26 01:52] VITALS: BP 109/69; PULSE 64; RESP 19
[2018-11-26] MEDS: CEFEPIME 2GM/50 ML (PMX) 50 ML IVPB SCH (05:41)
[2018-11-26] MEDS: VANCOMYCIN 1 GM 250 ML IVPB SCH (07:09)
[2018-11-26 07:48] VITALS: BP 112/77; PULSE 67; RESP 18
--- NOTE | 2018-11-26 08:29 | CONS ---
Assessment/Plan Assessment/Plan Hospital Course (Demo Recall) 1)probable viral syndrome (F, chills and BAUTISTA) doubt he has meningitis no evidence to suggest ebola at this time and it is only present in the [place] of [facility], not in [facility] malaria is present all year round in [facility], including [facility] center [facility], to repeat thick smear for malaria, pt does not recall any mosquito bites dengue is possible but he does not exhibit the typical symptoms for it (severe myalgias, retro-orbital pain, petecchiae) and it is too early for Ab to appear for it, continue to monitor for symptoms continue with vanco/cefepime at present but if fever is improved and procalci tonin and cx are all neg will likely d/c antibiotics soon check procalcitonin influenza rapid screen was neg, to check viral respiratory panel pt has no diarrhea so unlikely he has a GI cause for his fever CXR was neg and pt has no respiratory symptoms typhoid fever is possible but no diarrhea and blood cx are NGTD no hx of recent dental work and no IVDA use, so doubt endocarditis, to follow blood cx 11/26 - blood and urine cx are neg to date fevers are much better, no current BAUTISTA although took a norco at 2a.m. for frontal band BAUTISTA d/c vanco/cefepime and start augmentin for 5 days he has some tenderness over the frontal sinuses with tapping but no coryza his procalcitonin was elevated, will check rapid strep screen and treat for possible sinusitis doubt he has meningitis, to d/c isolation if pt continues to do well, ok for d/c from ID perspective 2) increase in LFT's although he received the hep B vaccine in [facility] last year he has no antibodies to Hep B surface and his surface antigen is positive in light of how low his increase in LFT's are he likely has chronic hepatitis and will need followup with repeat testing in a few months to see if he can clear it on his own also his increase in LFT's could be also related to a viral syndrome RUQ u/s was unremarkable 11/26 - this has improved pt has likely early chronic hep B and may clear it on his own in the next year pt advised to get follow up in [facility] for this 3)leukopenia and thrombocytopenia this is c/w an viral process work-up as above doubt he has sepsis to explain it 11/26 - improved WBC but platelets are a bit less d/c vanco/cefepime and give augmentin for 5 days follow up as outpt with CBC Consultation Date/Type/Reason Admit Date/Time Nov 24, 2018 at 19:29 Initial Consult Date 11/25/18 Type of Consult ID Date/Time of Note DATE: 11/26/18 TIME: 08:23 24 HR Interval Summary Free Text/Dictation pt has no BAUTISTA this a.m. no N, V, eye changes pt states he feels sores coming out on his nose and lips and that this happens when he has fevers no SOB, sore throat, coryza no D he states he feels strong Exam/Review of Systems Exam Vitals Vital Signs Date Temp Pulse Resp B/P (MAP) Pulse Ox O2 O2 Flow FiO2 Time Delivery Rate 11/26/18 97.9 67 18 112/77 97 Room Air 07:48 (89) Intake and Output 11/25/18 11/25/18 11/26/18 1515:00 23:00 07:00 IntakeIntake Total 810 ml 3020 ml 940 ml BalanceBalance 810 ml 3020 ml 940 ml Constitutional: alert, oriented Eyes: nl sclera ENMT: mucosa pink and moist, other (no sores appreciated on lips or nose) Neck: supple Respiratory: clear to auscultation Cardiovascular: regular rate and rhythm Gastrointestinal: soft, non-tender Results Result Diagram: 11/26/18 0554 11/26/18 0554 Results 24hrs Laboratory Tests Test 11/25/18 09:30 11/26/18 05:54 Procalcitonin 1.42 H HIV (1&2) Antibody NEGATIVE White Blood Count 4.0 #L Red Blood Count 5.31 Hemoglobin 12.0 L Hematocrit 38.9 L Mean Corpuscular Volume 73.3 L Mean Corpuscular Hemoglobin 22.6 L Mean Corpuscular Hemoglobin Concent 30.8 L Red Cell Distribution Width 15.0 H Platelet Count 99 L Mean Platelet Volume 12.0 H Immature Granulocytes % 0.300 Neutrophils % Lymphocytes % Monocytes % Eosinophils % Basophils % Nucleated Red Blood Cells % 0.0 Immature Granulocytes # 0.010 Neutrophils # Lymphocytes # Monocytes # Eosinophils # Basophils # Nucleated Red Blood Cells # Sodium Level 143 Potassium Level 4.3 Chloride Level 106 Carbon Dioxide Level 30 Anion Gap 7 Blood Urea Nitrogen 6 L Creatinine 0.84 Est Glomerular Filtrat Rate mL/min > 60 Glucose Level 101 Calcium Level 8.6 Total Bilirubin 1.5 H Direct Bilirubin 0.00 Indirect Bilirubin 1.5 H Aspartate Amino Transf (AST/SGOT) 36 Alanine Aminotransferase (ALT/SGPT) 80 H Alkaline Phosphatase 79 Total Protein 6.3 Albumin 3.2 L Globulin 3.10 Albumin/Globulin Ratio 1.03 Vancomycin Level Trough 10.1 Medications Medication Current Medications IV Flush (NS 3 ml) 3 ml PER PROTOCOL IV ; Start 11/24/18 at 20:00 Ondansetron HCl (Zofran Inj) 4 mg Q6H PRN IV NAUSEA/VOMITING; Start 11/24/18 at 20:00 Acetaminophen (Tylenol Tab) 650 mg Q6H PRN PO .PAIN 1-3 OR TEMP Last administered on 11/25/18at 12:20; Admin Dose 650 MG; Start 11/24/18 at 20:00 Ibuprofen (Motrin) 600 mg Q6H PRN PO .PAIN 1-3; Start 11/24/18 at 20:00 Acetaminophen/ Hydrocodone Bitart ([place] (5/325)) 1 tab Q6H PRN PO .MOD PAIN 4- 6 Last administered on 11/26/18at 02:02; Admin Dose 1 TAB; Start 11/24/18 at 20:00 Docusate Sodium (Colace) 100 mg Q12H PRN PO .CONSTIPATION; Start 11/24/18 at 20:00 Bisacodyl (Dulcolax) 5 mg DAILY PRN PO .CONSTIPATION; Start 11/24/18 at 20:00 Vancomycin HCl (Vanco Iv Per Pharmacy) VANCOMYCIN PER PHARMACY PER PROTOCOL XX ; Start 11/24/18 at 20:30 Levalbuterol (Xopenex Neb) 1.25 mg Q4H RESP THERAPY PRN HHN SHORTNESS OF BREATH; Start 11/24/18 at 20:30 Cefepime HCl 50 ml @ 100 mls/hr Q8 IVPB Last administered on 11/26/18at 05:41; Admin Dose 100 MLS/HR; Start 11/25/18 at 00:00 Vancomycin HCl 250 ml @ 125 mls/hr Q8H IVPB Last administered on 11/26/18at 07:09; Admin Dose 125 MLS/HR; Start 11/25/18 at 15:00 ROBY RICHARDSON MD Nov 26, 2018 08:29
[2018-11-26] MEDS ORDERED: AMOXICILLIN/CLAV 875 MG TAB PO SCH (10:00)
[2018-11-26] MEDS ORDERED: AMOX1TAB10 PO (11:23)
--- NOTE | 2018-11-26 11:24 | PDOCDIS ---
Discharge Instructions DIAGNOSIS Discharge Diagnosis Sepsis Hepatitis B CONDITION [id number] Patient Condition: [id number] Stable FOLLOW UP/APPOINTMENTS Follow-up Plan Make an appointment with a doctor to discuss management of your hepatitis B Take your antibiotics as prescribed NAHOMI AMEZCUA MD Nov 26, 2018 11:24
--- NOTE | 2018-11-26 16:26 | DS ---
Date/Time of Note Date/Time of Note DATE: 11/26/18 TIME: 16:24 Discharge Summary Admission/Discharge Info Admit Date/Time Nov 24, 2018 at 19:29 Discharge Date/Time Nov 26, 2018 at 12:05 Discharge Diagnosis Sepsis Hepatitis B Patient Condition: Stable Hospital Course Cooper presented with fevers and facial pain/headache Labs showed rose cytopenias and transamintiis. HBV was positive. He was given antibiotics under guidance of Dr Oliveros of ID. His symptoms improved. Malaria smear was negative, HIV PCR was negative. Not clear exactly his diagnosis but given improvement with antibiotics he was given 1 week of amoxicillin and discharged. He will return if symptoms do not improve or worsen. He was counseled to follow up with MD as outpatinet for management of HBV Home Meds Active Scripts Amoxicillin/Potassium Clav (Amox-Clav 875-125 mg Tablet) 875-125 mg Tab, 875 MG PO BID for 5 Days, #10 TAB Prov:NAHOMI AMEZCUA MD 11/26/18 Follow-up Plan Make an appointment with a doctor to discuss management of your hepatitis B Take your antibiotics as prescribed Primary Care Provider Care Physician No Primary Pending Labs Laboratory Tests Test 11/26/18 05:54 11/26/18 09:27 White Blood Count 4.0 10^3/ul (4.8-10.8) Red Blood Count 5.31 10^6/ul (4.70-6.10) Hemoglobin 12.0 g/dl (14.0-18.0) Hematocrit 38.9 % (42.0-52.0) Mean Corpuscular Volume 73.3 fl (82.0-101.0) Mean Corpuscular Hemoglobin 22.6 pg (29.0-33.0) Mean Corpuscular 30.8 g/dl (32.0-37.0) Hemoglobin Concent Red Cell Distribution Width 15.0 % (11.5-14.5) Platelet Count 99 10^3/UL (140-415) Mean Platelet Volume 12.0 fl (7.4-10.4) Immature Granulocytes % 0.300 % (0.001-0.429) Neutrophils % % (39.0-77.0) Lymphocytes % % (15.0-51.0) Monocytes % % (0.0-11.0) Eosinophils % % (0.0-7.0) Basophils % % (0.0-2.0) Nucleated Red Blood Cells % 0.0 /100WBC (0.0-0.0) Immature Granulocytes # 0.010 10^3/ul (0.0-0.031) Neutrophils # 10^3/ul (1.6-7.5) Lymphocytes # 10^3/ul (0.8-2.9) Monocytes # 10^3/ul (0.3-0.9) Eosinophils # 10^3/ul (0.0-0.5) Basophils # 10^3/ul (0.0-0.1) Nucleated Red Blood Cells # 10^3/ul (0.0-0.0) Sodium Level 143 mmol/L (135-144) Potassium Level 4.3 mmol/L (3.5-5.1) Chloride Level 106 mmol/L (97-110) Carbon Dioxide Level 30 mmol/L (21-31) Anion Gap 7 (5-13) Blood Urea Nitrogen 6 mg/dl (7-20) Creatinine 0.84 mg/dl (0.61-1.24) Est Glomerular Filtrat > 60 mL/min (>60) Rate mL/min Glucose Level 101 mg/dl (70-220) Calcium Level 8.6 mg/dl (8.4-10.2) Total Bilirubin 1.5 mg/dl (0.2-1.3) Direct Bilirubin 0.00 mg/dl (0.00-0.20) Indirect Bilirubin 1.5 mg/dl (0-1.1) Aspartate Amino 36 IU/L (15-46) Transf (AST/SGOT) Alanine 80 IU/L (13-69) Aminotransferase (ALT/SGPT) Alkaline Phosphatase 79 IU/L (42-121) Total Protein 6.3 g/dl (6.1-8.1) Albumin 3.2 g/dl (3.3-4.9) Globulin 3.10 g/dl (1.3-3.2) Albumin/Globulin Ratio 1.03 Vancomycin Level Trough 10.1 ug/ml (10.0-20.0) Procalcitonin 0.97 ng/mL (0.00-0.10) NAHOMI AMEZCUA MD Nov 26, 2018 16:26
== END 2018-11-26 12:05 | disposition home or self-care (01) | DRG 872 ==
LOC: E/R 15:48 → 2NE 19:29
PROVIDERS: ADMIT Internal Medicine; ATTEND Internal Medicine
DX: A41.9 Sepsis, unspecified organism (principal); B18.1 Chronic viral hepatitis B without delta-agent; D69.6 Thrombocytopenia, unspecified; D72.819 Decreased white blood cell count, unspecified
CPT/HCPCS: 36415; 71045; 76705; 80053; 80202; 80307; 81001; 82728; 83036; 83540; 83605; 83615; 83735; 84145; 84443; 84484; 85025; 85045; 85610; 85651; 85730; 86140; 86592; 86692; 86703; 86704; 86706; 86709; 86788; 86789; 86803; 87086; 87207; 87275; 87276; 87279; 87280; 87340; 87400; 87529; 87536; 93005; 96365; 96375; J0692; J1885; J3370; J7030; J7040